=== PATIENT | male | born 1970 | race Caucasian/White ===

== ENCOUNTER 2018-04-26 18:00 | Inpatient (IN) | payer OTHER ==
[2018-04-26 19:34] VITALS: BMI 30.2
--- NOTE | 2018-04-26 22:13 | HP ---
CIWA Score Nausea/Vomitin-Mild Nausea/No Vomiting Muscle Tremors: 1-None Visible, but [place] Anxiety: 4-Mod. Anxious/Guarded Agitation: 4-Moderately Restless Paroxysmal Sweats: 3 (Increased facial moisture) Orientation: 0-Oriented Tacttile Disturbances: 0-None Auditory Disturbances: 0-None Visual Disturbances: 0-None Headache: 3-Moderate CIWA-Ar Total Score: 16 - Admission Criteria [facility] Guidelines: Admission for Medically Managed Detox: Requires at least one of the followin. CIWA greater than 12 2. Seizures within the past 24 hours 3. Delirium tremens within the past 24 hours 4. Hallucinations within the past 24 hours 5. Acute intervention needed for co occurring medical disorder 6. Acute intervention needed for co occurring psychiatric disorder 7. Severe withdrawal that cannot be handled at a lower level of care (continued vomiting, continued diarrhea, abnormal vital signs) requiring intravenous medication and/or fluids 8. Patient presents the following: CIWA greater than 12 Admission Criteria Met: Admission criteria met Admission ROS [facility] Chief Complaint: Here for klonopin withdrawal. Allergies/Adverse Reactions: Allergies Allergy/AdvReac Type Severity Reaction Status Date / Time No Known Allergies Allergy Verified 04/26/18 23:41 History of Present Illness: States has been taking more clonazepam than prescribed and is here for detox. State has been taking prescribed clonazepam for years. Letter from prescriber indicates agreeing to patient being discontinued off clonazepam. Prescribed Xanax use began at approx age 32, then was started on clonazepam in 2008. Has been on prescribed clonazepam since then. Letter from provider received and states that clonazepam will no longer be prescribed. Has experimented w/ opiates years ago. Denies alcohol or nicotine use. Patient states has hx episodes of orthostatic hypotension for last 3 months and has been taking Fludrocortisone. States blackouts r/t hypotension. - Discussed avoidance techniques. Denies other significant PMH. States hx TOBY, PTSD, ADHD. Needs a new mental health provider. Patient Name: Clement Vitale Date: 1970 Address: [address] [place] [address] Sex: Male Rx Written Rx Dispensed Drug Quantity Days Supply Prescriber Name 04/04/2018 04/04/2018 clonazepam 1 mg tablet 60 30 Thomas Hanson 04/04/2018 04/04/2018 methylphenidate er 36 mg tab 60 30 Valentin Thomas 12/18/2017 12/18/2017 methylphenidate er 54 mg tab 7 7 Gilles Shields MD 12/18/2017 12/18/2017 clonazepam 1 mg tablet 21 7 Gilles Shields MD 12/14/2017 12/14/2017 methylphenidate er 18 mg tab 7 7 Gilles Shields MD 12/12/2017 12/12/2017 clonazepam 1 mg tablet 21 7 Gilles Shields MD 12/12/2017 12/12/2017 methylphenidate er 54 mg tab 7 7 Gilles Shields MD 12/10/2017 12/10/2017 clonazepam 2 mg tablet 5 3 Gilles Shields MD 11/29/2017 12/02/2017 methylphenidate er 18 mg tab 14 14 Gilles Shields MD 11/29/2017 11/29/2017 clonazepam 1 mg tablet 42 14 Gilles Shields MD 11/29/2017 11/29/2017 methylphenidate er 54 mg tab 14 14 Gilles Shields MD 11/23/2017 11/26/2017 methylphenidate er 18 mg tab 7 7 Gilles Shields MD 11/23/2017 11/23/2017 clonazepam 1 mg tablet 21 7 Gilles Shields MD 11/23/2017 11/23/2017 methylphenidate er 54 mg tab 7 7 Gilles Shields MD 11/15/2017 11/19/2017 methylphenidate er 36 mg tab 14 7 Gilles Shields MD 11/15/2017 11/16/2017 clonazepam 1 mg tablet 21 7 Gilles Shields MD 11/09/2017 11/12/2017 methylphenidate er 36 mg tab 14 7 Gilles Shields MD 11/09/2017 11/09/2017 clonazepam 1 mg tablet 21 7 Gilles Shields MD 10/23/2017 11/06/2017 methylphenidate er 36 mg tab 14 7 Gilles Shields MD 10/31/2017 11/01/2017 clonazepam 1 mg tablet 21 7 Gilles Shields MD 10/22/2017 10/23/2017 clonazepam 1 mg tablet 21 7 Gilles Shields MD 09/24/2017 10/10/2017 methylphenidate er 36 mg tab 60 30 Gilles Shields MD 09/24/2017 09/26/2017 clonazepam 1 mg tablet 90 30 Gilles Shields MD 09/17/2017 09/19/2017 clonazepam 1 mg tablet 24 8 Leatha Ramirez MD 09/10/2017 09/11/2017 methylphenidate er 36 mg tab 60 30 Gilles Shields MD 08/20/2017 08/20/2017 clonazepam 1 mg tablet 90 30 Gilles Shields MD 08/13/2017 08/13/2017 methylphenidate er 36 mg tab 60 30 Gilles Shields MD 07/17/2017 07/20/2017 clonazepam 1 mg tablet 90 30 Gilles Shields MD 06/25/2017 07/12/2017 methylphenidate er 36 mg tab 60 30 Gilles Shields MD 06/22/2017 06/22/2017 clonazepam 1 mg tablet 90 30 Gilles Shields MD 05/29/2017 06/14/2017 methylphenidate er 36 mg tab 60 30 Gilles Shields MD 05/23/2017 05/23/2017 clonazepam 1 mg tablet 90 30 Gilles Shields MD 05/14/2017 05/15/2017 methylphenidate er 36 mg tab 60 30 Gilles Shields MD Patient Name: Clement Vitale Date: 1970 Address: [address] [place] [address] Sex: Male Rx Written Rx Dispensed Drug Quantity Days Supply Prescriber Name 04/02/2018 04/02/2018 clonazepam 1 mg tablet 20 10 Thomas Hanson 03/25/2018 03/25/2018 methylphenidate er 36 mg tab 12 12 hTomas Hanson 03/19/2018 03/19/2018 methylphenidate er 18 mg tab 36 18 Thomas Hanson 03/15/2018 03/15/2018 clonazepam 1 mg tablet 42 21 Thomas Hanson 03/15/2018 03/15/2018 methylphenidate er 18 mg tab 16 16 Thomas Hanson 03/15/2018 03/15/2018 methylphenidate er 36 mg tab 14 14 Thomas Hanson 03/11/2018 03/13/2018 clonazepam 0.5 mg tablet 5 5 Thomas Hanson 03/12/2018 03/12/2018 methylphenidate er 18 mg tab 5 5 Thomas Hanson 03/05/2018 03/05/2018 clonazepam 0.5 mg tablet 36 12 Thomas Hanson 03/04/2018 03/04/2018 methylphenidate er 36 mg tab 14 14 Thomas Hanson 02/28/2018 02/28/2018 clonazepam 0.5 mg tablet 30 15 Carlyle Foreman MD 02/27/2018 02/27/2018 clonazepam 0.5 mg tablet 6 3 Gilles Siddiqi MD Patient Name: Evan Vitale Date: 1970 Address: [address] [place] [address] Sex: Male Rx Written Rx Dispensed Drug Quantity Days Supply Prescriber Name 01/09/2018 01/14/2018 methylphenidate er 18 mg tab 12 12 Gilles Shields MD 01/09/2018 01/10/2018 methylphenidate er 54 mg tab 12 12 Gilles Shields MD 01/09/2018 01/10/2018 clonazepam 1 mg tablet 36 12 Gilles Shields MD 01/03/2018 01/03/2018 methylphenidate er 18 mg tab 8 8 Gilles Shields MD 12/31/2017 01/01/2018 methylphenidate er 54 mg tab 10 10 Gilles Shields MD 12/31/2017 01/01/2018 clonazepam 1 mg tablet 30 10 Gilles Shields MD 12/27/2017 12/27/2017 methylphenidate er 18 mg tab 7 7 Gilles Shields MD 12/24/2017 12/24/2017 methylphenidate er 54 mg tab 7 7 Gilles Shields MD 12/24/2017 12/24/2017 clonazepam 1 mg tablet 21 7 Gilles Shields MD 12/20/2017 12/20/2017 methylphenidate er 18 mg tab 7 7 Gilles Shields MD Exam Limitations: No Limitations - Ebola screening Have you traveled outside of the country in the last 21 days: No Have you had contact with anyone from an Ebola affected area: No Have you been sick,other than usual withdrawal symptoms: No Do you have a fever: No - Review of Systems Constitutional: Chills, Diaphoresis EENT: reports: No Symptoms Reported Respiratory: reports: No Symptoms reported Cardiac: reports: No Symptoms Reported GI: reports: Nausea (Slight) : reports: No Symptoms Reported Musculoskeletal: reports: No Symptoms Reported Integumentary: reports: No Symptoms Reported Neuro: reports: Headache Endocrine: reports: No Symptoms Reported Hematology: reports: No Symptoms Reported Psychiatric: reports: Judgement Intact, Orientated x3, Agitated, Anxious ( Denies thoughts of harming self or others) Patient History - PPD History Previous Implant?: Yes Documented Results: Negative w/o proof Implanted On Prior [facility] Admission?: No PPD to be Administered?: Yes - Smoking Cessation Smoking history: Never smoked Have you smoked in the past 12 months: No Hx Chewing Tobacco Use: No Initiated information on smoking cessation: No - Substance & Tx. History Hx Alcohol Use: No Hx Substance Use: Yes Substance Use Type: Prescribed (Clonazepam) - Substances Abused Benzodiazepine (Klonopin) Route: Oral Frequency: Daily Amount used: 3 mg Age of first use: 37 Date of Last Use: 04/26/18 Admission Physical Exam [facility] - Vital Signs Vital Signs: Vital Signs - 24 hr 04/26/18 19:32 Temperature 98.2 F Pulse Rate 106 H Respiratory 18 Rate Blood Pressure 101/71 - Physical General Appearance: Yes: Appropriately Dressed, Mild Distress, Tremorous (Mild tremors felt in hands), Sweating (Increased facial moisture), Anxious HEENTM: Yes: EOMI, Hearing grossly Normal, Normal Voice, EVERARDO (Pupils = 6 mm), Other (Saliva thick and whitish) Respiratory: Yes: Lungs Clear, Normal Breath Sounds, No Respiratory Distress Neck: Yes: No masses,lesions,Nodules, Supple Breast: Yes: Breast Exam Deferred Cardiology: Yes: Regular Rhythm, S1, S2, Tachycardia Abdominal: Yes: Normal Bowel Sounds, Non Tender, Soft Genitourinary: Yes: Within Normal Limits Back: Yes: Normal Inspection Musculoskeletal: Yes: full range of Motion, Gait Steady Extremities: Yes: Normal Capillary Refill, Normal Inspection, Normal Range of Motion, Tremors (mild tremors of hands) Neurological: Yes: sash finisher II-XII NML intact, Fully Oriented, Alert, Motor Strength 5/5 Integumentary: Yes: Normal Color, Dry (Decreased skin turgor), Warm Lymphatic: Yes: Within Normal Limits - Diagnostic (1) Sedative, hypnotic or anxiolytic dependence with withdrawal, uncomplicated Current Visit: Yes Status: Acute (2) Tachycardia Current Visit: Yes Status: Acute (3) Dehydration Current Visit: Yes Status: Acute (4) History of orthostatic hypotension Current Visit: Yes Status: Chronic Cleared for Admission [facility] - Detox or Rehab [facility] Level of Care: Medically Supervised [facility] Breath Alcohol Content Breath Alcohol Content: 0 Urine Drug Screen - Results Drug Screen Negative: Yes
[2018-04-26] MEDS ORDERED: MAGNESIUM CITRATE 300 ML BOTTLE PO PRN (23:15)
[2018-04-26] MEDS ORDERED: IBUPROFEN 400 MG TABLET (FP) PO PRN (23:15)
[2018-04-26] MEDS ORDERED: LOPERAMIDE HCL 2 MG CAPSULE PO PRN (23:15)
[2018-04-26] MEDS ORDERED: MAG HYDROX/AL HYDROX/SIMETH 30 ML UNIT-DOSE CUP PO PRN (23:15)
[2018-04-26] MEDS ORDERED: MENTHOL/PHENOL 1 EACH UD MM PRN (23:15)
[2018-04-26] MEDS ORDERED: ACETAMINOPHEN 325 MG TABLET (FP) PO PRN (23:15)
[2018-04-26] MEDS ORDERED: MAGNESIUM HYDROX 2400MG/30ML ORAL SUSPENSION 30 ML CUP PO PRN (23:15)
[2018-04-26] MEDS: LORazepam 1 MG TABLET PO SCH (23:41)
[2018-04-27] MEDS: PRENATAL VITAMINS W/ FOLIC ACID TABLET (FP) PO SCH (10:08)
[2018-04-27] MEDS: LORazepam 1 MG TABLET PO SCH ×2 (10:08→22:27)
[2018-04-27] MEDS: FLUDROCORTISONE ACETATE 0.1 MG TABLET (FP) PO SCH (10:09)
--- NOTE | 2018-04-27 10:36 | CONSULT ---
[facility] Psychiatric Consult - Data Date of interview: 04/27/18 Admission source: [facility] Identifying data: Patient is a 47 year old single male, without children, unemployed, and currently residing at his father's home. This is patient's first admission to detox at [facility]. Patient admitted to for benzodiazepine dependence. Substance Abuse History: Smoking Cessation. Smoking history: Never smoked. Have you smoked in the past 12 months: No. Hx Chewing Tobacco Use: No. Initiated information on smoking cessation: No. - Substance & Tx. History. Hx Alcohol Use: No. Hx Substance Use: Yes. Substance Use Type: Prescribed ( Clonazepam). - Substances Abused. Benzodiazepine (Klonopin). Route: Oral. Frequency: Daily. Amount used: 3 mg. Age of first use: 37. Date of Last Use : 04/26/18 Medical History: History of orthostatic hypotension Psychiatric History: Patient reports one psychiatric hospitalization in January of 2018 at [facility] after he became noncompliant with his medication regiman of paxil +Klonopin + Concerta + Paxil. Patient reports a has a history of ADHD, TOBY, and PTSD. Patient was receiving outpatient psychiatric care at [facility] for approximately 10 years until his treatment was recently discontined because patient was unable to meet criteria of program. Patient was at [facility] inpatient rehab in 2017 and was discharged on Paxil 30mg qhs + Concerta 36mg (one dose in the morning and one in the afternoon) Klonpoin 1mg BID + Seroquel 50mg TID PRN. Patient denies h /o suicide attempt. Physical/Sexual Abuse/Trauma History: He reports emotional trauma secondary to his ADHD . Mental Status Exam - Mental Status Exam Alert and Oriented to: Time, Place, Person Cognitive Function: Good Patient Appearance: Well Groomed Mood: Withdrawn, Euthymic Affect: Mood Congruent Patient Behavior: Fatigued, Appropriate, Cooperative Speech Pattern: Appropriate Voice Loudness: Moderately Soft/Quiet Thought Process: Intact, Goal Oriented Thought Disorder: Not Present Hallucinations: Denies Suicidal Ideation: Denies Homicidal Ideation: Denies Insight/Judgement: Poor Sleep: Poorly Appetite: Fair Muscle strength/Tone: Normal Gait/Station: Normal Psychiatric Findings - Problem List ([place] 1, 2,3) (1) Anxiety disorder Current Visit: Yes Status: Chronic (2) Sedative, hypnotic or anxiolytic dependence with withdrawal, uncomplicated Current Visit: Yes Status: Acute (3) ADHD (attention deficit hyperactivity disorder) Current Visit: No Status: Chronic - Initial Treatment Plan Initial Treatment Plan: Psychoeducation provided. Detox in progress. Will order Paxil 30mg HS + Seroquel 100mg HS. Benefits and side effects discussed. Verbal consent given.
[2018-04-27 11:14] LABS: ALBUMIN 3.8 g/dl (3.4-5.0); ALK PHOS 88 U/L (45-117); ANION GAP 10 MMOL/L (8-16); BILIRUBIN,TOTAL 0.7 mg/dL (0.2-1); BLOOD UREA NITROGEN 27 mg/dL (7-18); CALCIUM 8.6 mg/dL (8.5-10.1); CHLORIDE 102 mmol/L (98-107); CO2 28 mmol/L (21-32); CREATININE 1.5 mg/dL (0.55-1.3); GLUCOSE,RANDOM 93 mg/dL (74-106); POTASSIUM 3.6 mmol/L (3.5-5.1); SGOT/AST 15 U/L (15-37); SGPT/ALT 19 U/L (13-61); SODIUM 140 mmol/L (136-145); TOT PROT 7.1 g/dl (6.4-8.2)
[2018-04-27 11:24] LABS: HEMATOCRIT 45.5 % (35.4-49); HEMOGLOBIN 14.8 GM/dL (11.7-16.9); MCH 28.1 pg (25.7-33.7); MCHC 32.5 g/dl (32.0-35.9); MEAN CELL VOLUME 86.4 fl (80-96); PLATELET COUNT 235 K/MM3 (134-434); RBC 5.27 M/mm3 (4.00-5.60); RDW 14.2 % (11.9-15.9); WHITE BLOOD COUNT 8.2 K/mm3 (4.0-10.0)
[2018-04-27 11:52] LABS: URINE APPEARANCE CLEAR; URINE BILIRUBIN NEGATIVE (<2.0 mg/dL); URINE COLOR LTYELLOW; URINE GLUCOSE (UA) NEGATIVE (NEGATIVE); URINE KETONE NEGATIVE (NEGATIVE); URINE LEUK ESTERASE NEGATIVE (NEGATIVE); URINE NITRITE NEGATIVE (NEGATIVE); URINE PROTEIN NEGATIVE (NEGATIVE); URINE UROBILINOGEN NEGATIVE mg/dL (0.2-1.0)
--- NOTE | 2018-04-27 12:36 | PN ---
S CIWA - CIWA Score Nausea/Vomitin Muscle Tremors: 2 Anxiety: 2 Agitation: 2 Paroxysmal Sweats: 1-Minimal Palms Moist Orientation: 0-Oriented Tacttile Disturbances: 1-Very Mild Itch/Numbness Auditory Disturbances: 0-None Visual Disturbances: 1-Very Mild Sensitivity Headache: 2-Mild CIWA-Ar Total Score: 13 [facility] Progress Note (SOAP) Subjective: alert,irritable,anxious,interrupted sleep,tremor Objective: 04/27/18 12:34 Vital Signs Temperature 98.3 F 04/27/18 09:26 Pulse Rate 99 H 04/27/18 09:26 Respiratory Rate 18 04/27/18 09:26 Blood Pressure 102/62 04/27/18 09:26 O2 Sat by Pulse Oximetry (%) 04/27/18 12:34 Laboratory Last Values WBC 8.2 K/mm3 (4.0-10.0) 04/27/18 07:30 RBC 5.27 M/mm3 (4.00-5.60) 04/27/18 07:30 Hgb 14.8 GM/dL (11.7-16.9) 04/27/18 07:30 Hct 45.5 % (35.4-49) 04/27/18 07:30 MCV 86.4 fl (80-96) 04/27/18 07:30 MCH 28.1 pg (25.7-33.7) 04/27/18 07:30 MCHC 32.5 g/dl (32.0-35.9) 04/27/18 07:30 RDW 14.2 % (11.9-15.9) 04/27/18 07:30 Plt Count 235 K/MM3 (134-434) 04/27/18 07:30 MPV 9.0 fl (7.5-11.1) 04/27/18 07:30 Sodium 140 mmol/L (136-145) 04/27/18 07:30 Potassium 3.6 mmol/L (3.5-5.1) 04/27/18 07:30 Chloride 102 mmol/L (98-107) 04/27/18 07:30 Carbon Dioxide 28 mmol/L (21-32) 04/27/18 07:30 Anion Gap 10 MMOL/L (8-16) 04/27/18 07:30 BUN 27 mg/dL (7-18) H 04/27/18 07:30 Creatinine 1.5 mg/dL (0.55-1.3) H 04/27/18 07:30 Creat Clearance w eGFR 50.16 (>60) 04/27/18 07:30 Random Glucose 93 mg/dL (74-106) 04/27/18 07:30 Calcium 8.6 mg/dL (8.5-10.1) 04/27/18 07:30 Total Bilirubin 0.7 mg/dL (0.2-1) 04/27/18 07:30 AST 15 U/L (15-37) 04/27/18 07:30 ALT 19 U/L (13-61) 04/27/18 07:30 Alkaline Phosphatase 88 U/L (45-117) 04/27/18 07:30 Total Protein 7.1 g/dl (6.4-8.2) 04/27/18 07:30 Albumin 3.8 g/dl (3.4-5.0) 04/27/18 07:30 Urine Color Ltyellow 04/27/18 08:45 Urine Appearance Clear 04/27/18 08:45 Urine pH 6.0 (5.0-8.0) 04/27/18 08:45 Ur Specific [place] 1.009 (1.010-1.035) L 04/27/18 08:45 Urine Protein Negative (NEGATIVE) 04/27/18 08:45 Urine Glucose (UA) Negative (NEGATIVE) 04/27/18 08:45 Urine Ketones Negative (NEGATIVE) 04/27/18 08:45 Urine Blood Negative (NEGATIVE) 04/27/18 08:45 Urine Nitrite Negative (NEGATIVE) 04/27/18 08:45 Urine Bilirubin Negative (<2.0 mg/dL) 04/27/18 08:45 Urine Urobilinogen Negative mg/dL (0.2-1.0) 04/27/18 08:45 Ur Leukocyte Esterase Negative (NEGATIVE) 04/27/18 08:45 Assessment: 04/27/18 12:35 withdrawal symptom, Plan: continue detox,encourage oral fluid,repeat cmp in am
[2018-04-27] MEDS ORDERED: LORazepam 0.5 MG TABLET PO SCH (14:00)
[2018-04-27] MEDS ORDERED: LORazepam 1 MG TABLET PO SCH (14:04)
[2018-04-27] MEDS ORDERED: QUEtiapine FUMARATE 50 MG TABLET PO PRN (15:27)
--- NOTE | 2018-04-27 15:46 | EKG ---
Test Reason : Blood Pressure : / mmHG Vent. Rate : 093 BPM Atrial Rate : 093 BPM P-R Int : 146 ms QRS Dur : 086 ms QT Int : 356 ms P-R-T Axes : 036 007 011 degrees QTc Int : 442 ms NORMAL SINUS RHYTHM NORMAL ECG NO PREVIOUS ECGS AVAILABLE Confirmed by JOHNNY ROSA MD ([id number]) on 04/27/2018 3:45:55 PM Referred By: Confirmed By:JOHNNY ROSA MD
[2018-04-27] MEDS: THIAMINE HCL 100 MG TABLET (FP) PO SCH (22:08)
[2018-04-27] MEDS: QUEtiapine FUMARATE 50 MG TABLET PO SCH (22:09)
[2018-04-27] MEDS: PARoxetine HCL 10 MG TABLET (FP) PO SCH (22:09)
[2018-04-28] MEDS: LORazepam 1 MG TABLET PO SCH ×3 (05:04→22:33)
[2018-04-28] MEDS: FLUDROCORTISONE ACETATE 0.1 MG TABLET (FP) PO SCH (10:23)
[2018-04-28] MEDS: hydrOXYzine PAMOATE 25 MG CAPSULE (FP) PO PRN ×2 (10:23→14:10)
[2018-04-28] MEDS: PRENATAL VITAMINS W/ FOLIC ACID TABLET (FP) PO SCH (10:24)
[2018-04-28 10:28] LABS: ALBUMIN 3.9 g/dl (3.4-5.0); ALK PHOS 86 U/L (45-117); ANION GAP 5 MMOL/L (8-16); BILIRUBIN,TOTAL 0.5 mg/dL (0.2-1); BLOOD UREA NITROGEN 20 mg/dL (7-18); CALCIUM 8.9 mg/dL (8.5-10.1); CHLORIDE 106 mmol/L (98-107); CO2 30 mmol/L (21-32); CREATININE 1.2 mg/dL (0.55-1.3); GLUCOSE,RANDOM 93 mg/dL (74-106); POTASSIUM 4.3 mmol/L (3.5-5.1); SGOT/AST 16 U/L (15-37); SGPT/ALT 17 U/L (13-61); SODIUM 141 mmol/L (136-145); TOT PROT 6.9 g/dl (6.4-8.2)
--- NOTE | 2018-04-28 16:09 | PN ---
[facility] CIWA - CIWA Score Nausea/Vomitin-Mild Nausea/No Vomiting Muscle Tremors: 3 Anxiety: 2 Agitation: 2 Paroxysmal Sweats: 3 Orientation: 0-Oriented Tacttile Disturbances: 0-None Auditory Disturbances: 0-None Visual Disturbances: 0-None Headache: 0-None Present CIWA-Ar Total Score: 11 [facility] Progress Note (SOAP) Subjective: Sweating, tremor, stomach cramps, interrupted sleep Objective: 04/28/18 16:07 Last Vital Signs Temp Pulse Resp BP Pulse Ox 9.0 F L 92 H 16 108/71 04/28/18 13:47 04/28/18 13:47 04/28/18 13:47 04/28/18 13:47 Laboratory Tests 04/27/18 04/27/18 04/27/18 07:30 07:30 07:30 WBC 8.2 RBC 5.27 Hgb 14.8 Hct 45.5 MCV 86.4 MCH 28.1 MCHC 32.5 RDW 14.2 Plt Count 235 MPV 9.0 Sodium 140 Potassium 3.6 Chloride 102 Carbon Dioxide 28 Anion Gap 10 BUN 27 H Creatinine 1.5 H Creat Clearance w eGFR 50.16 Random Glucose 93 Calcium 8.6 Total Bilirubin 0.7 AST 15 ALT 19 Alkaline Phosphatase 88 Total Protein 7.1 Albumin 3.8 Urine Color Urine Appearance Urine pH Ur Specific [place] Urine Protein Urine Glucose (UA) Urine Ketones Urine Blood Urine Nitrite Urine Bilirubin Urine Urobilinogen Ur Leukocyte Esterase RPR Titer Nonreactive 04/27/18 04/28/18 08:45 07:30 WBC RBC Hgb Hct MCV MCH MCHC RDW Plt Count MPV Sodium 141 Potassium 4.3 Chloride 106 Carbon Dioxide 30 Anion Gap 5 L BUN 20 H Creatinine 1.2 Creat Clearance w eGFR > 60 Random Glucose 93 Calcium 8.9 Total Bilirubin 0.5 AST 16 ALT 17 Alkaline Phosphatase 86 Total Protein 6.9 Albumin 3.9 Urine Color Ltyellow Urine Appearance Clear Urine pH 6.0 Ur Specific [place] 1.009 L Urine Protein Negative Urine Glucose (UA) Negative Urine Ketones Negative Urine Blood Negative Urine Nitrite Negative Urine Bilirubin Negative Urine Urobilinogen Negative Ur Leukocyte Esterase Negative RPR Titer Labs reviewed: bun 20 (was 27) Assessment: 04/28/18 16:08 Withdrawal symptoms Noted with azotemia Plan: Continue detox Azotemia: improved, encouraged PO water intake
[2018-04-28] MEDS: THIAMINE HCL 100 MG TABLET (FP) PO SCH (22:32)
[2018-04-28] MEDS: PARoxetine HCL 10 MG TABLET (FP) PO SCH (22:33)
[2018-04-28] MEDS: QUEtiapine FUMARATE 50 MG TABLET PO SCH (22:34)
[2018-04-29] MEDS: LORazepam 1 MG TABLET PO SCH ×2 (10:06→22:31)
[2018-04-29] MEDS: PRENATAL VITAMINS W/ FOLIC ACID TABLET (FP) PO SCH (10:07)
[2018-04-29] MEDS: FLUDROCORTISONE ACETATE 0.1 MG TABLET (FP) PO SCH (10:07)
[2018-04-29] MEDS: hydrOXYzine PAMOATE 25 MG CAPSULE (FP) PO PRN ×2 (13:51→18:19)
--- NOTE | 2018-04-29 17:33 | PN ---
[facility] Progress Note (SOAP) Subjective: abd pain sweats shakes Objective: 04/29/18 17:31 a A & O x 3 ambulating freely on unit No acute distress noted Vital Signs Temperature 97.1 F L 04/29/18 13:03 Pulse Rate 103 H 04/29/18 13:03 Respiratory Rate 20 04/29/18 13:03 Blood Pressure 105/68 04/29/18 13:03 O2 Sat by Pulse Oximetry (%) Assessment: 04/29/18 17:33 withdrawal sx Plan: continue detox
[2018-04-29] MEDS: PARoxetine HCL 10 MG TABLET (FP) PO SCH (22:32)
[2018-04-29] MEDS: THIAMINE HCL 100 MG TABLET (FP) PO SCH (22:32)
[2018-04-29] MEDS: QUEtiapine FUMARATE 50 MG TABLET PO SCH (22:32)
[2018-04-29] MEDS: MELATONIN 5 MG TABLETS PO PRN (22:33)
[2018-04-30] MEDS: PRENATAL VITAMINS W/ FOLIC ACID TABLET (FP) PO SCH (10:05)
[2018-04-30] MEDS: LORazepam 1 MG TABLET PO SCH ×2 (10:05→22:25)
[2018-04-30] MEDS: FLUDROCORTISONE ACETATE 0.1 MG TABLET (FP) PO SCH (10:05)
--- NOTE | 2018-04-30 14:51 | PN ---
[facility] Progress Note (SOAP) Subjective: Chills, sweating, tremor, nausea, stomach ache, interrupted sleep. Patient stated he doesn't want to be discharged tomorrow because of increased withdrawal symptoms. Objective: 04/30/18 14:49 Last Vital Signs Temp Pulse Resp BP Pulse Ox 97.0 F L 107 H 20 129/92 04/30/18 13:17 04/30/18 13:17 04/30/18 13:17 04/30/18 13:17 Laboratory Tests 04/27/18 04/27/18 04/27/18 07:30 07:30 07:30 WBC 8.2 RBC 5.27 Hgb 14.8 Hct 45.5 MCV 86.4 MCH 28.1 MCHC 32.5 RDW 14.2 Plt Count 235 MPV 9.0 Sodium 140 Potassium 3.6 Chloride 102 Carbon Dioxide 28 Anion Gap 10 BUN 27 H Creatinine 1.5 H Creat Clearance w eGFR 50.16 Random Glucose 93 Calcium 8.6 Total Bilirubin 0.7 AST 15 ALT 19 Alkaline Phosphatase 88 Total Protein 7.1 Albumin 3.8 Urine Color Urine Appearance Urine pH Ur Specific [place] Urine Protein Urine Glucose (UA) Urine Ketones Urine Blood Urine Nitrite Urine Bilirubin Urine Urobilinogen Ur Leukocyte Esterase RPR Titer Nonreactive 04/27/18 04/28/18 08:45 07:30 WBC RBC Hgb Hct MCV MCH MCHC RDW Plt Count MPV Sodium 141 Potassium 4.3 Chloride 106 Carbon Dioxide 30 Anion Gap 5 L BUN 20 H Creatinine 1.2 Creat Clearance w eGFR > 60 Random Glucose 93 Calcium 8.9 Total Bilirubin 0.5 AST 16 ALT 17 Alkaline Phosphatase 86 Total Protein 6.9 Albumin 3.9 Urine Color Ltyellow Urine Appearance Clear Urine pH 6.0 Ur Specific [place] 1.009 L Urine Protein Negative Urine Glucose (UA) Negative Urine Ketones Negative Urine Blood Negative Urine Nitrite Negative Urine Bilirubin Negative Urine Urobilinogen Negative Ur Leukocyte Esterase Negative RPR Titer Labs reviewed Assessment: 04/30/18 14:50 Withdrawal symptoms Plan: Continue detox Encouraged PO water intake
[2018-04-30] MEDS: hydrOXYzine PAMOATE 25 MG CAPSULE (FP) PO PRN (15:20)
[2018-04-30] MEDS: QUEtiapine FUMARATE 50 MG TABLET PO SCH (22:24)
[2018-04-30] MEDS: PARoxetine HCL 10 MG TABLET (FP) PO SCH (22:24)
[2018-04-30] MEDS: THIAMINE HCL 100 MG TABLET (FP) PO SCH (22:25)
[2018-04-30] MEDS: MELATONIN 5 MG TABLETS PO PRN (22:25)
[2018-05-01] MEDS ORDERED: LORazepam 1 MG TABLET PO SCH (10:00)
[2018-05-01 10:13] VITALS: BP 113/84; PULSE 97; TEMP 96.8
[2018-05-01] MEDS: PRENATAL VITAMINS W/ FOLIC ACID TABLET (FP) PO SCH (10:15)
[2018-05-01] MEDS: hydrOXYzine PAMOATE 25 MG CAPSULE (FP) PO PRN (10:16)
[2018-05-01] MEDS: FLUDROCORTISONE ACETATE 0.1 MG TABLET (FP) PO SCH (10:16)
--- NOTE | 2018-05-01 14:12 | PN ---
[facility] Progress Note (SOAP) Subjective: Sweating, Fatigue. Objective: PATIENT A & O X 3, OBSERVED AMBULATING ON UNIT. NO ACUTE DISTRESS. 05/01/18 14:09 Vital Signs Temperature 96.8 F L 05/01/18 10:12 Pulse Rate 97 H 05/01/18 10:12 Respiratory Rate 18 05/01/18 10:12 Blood Pressure 113/84 05/01/18 10:12 O2 Sat by Pulse Oximetry (%) Laboratory Tests 04/27/18 04/27/18 04/27/18 07:30 07:30 07:30 WBC 8.2 RBC 5.27 Hgb 14.8 Hct 45.5 MCV 86.4 MCH 28.1 MCHC 32.5 RDW 14.2 Plt Count 235 MPV 9.0 Sodium 140 Potassium 3.6 Chloride 102 Carbon Dioxide 28 Anion Gap 10 BUN 27 H Creatinine 1.5 H Creat Clearance w eGFR 50.16 Random Glucose 93 Calcium 8.6 Total Bilirubin 0.7 AST 15 ALT 19 Alkaline Phosphatase 88 Total Protein 7.1 Albumin 3.8 Urine Color Urine Appearance Urine pH Ur Specific [place] Urine Protein Urine Glucose (UA) Urine Ketones Urine Blood Urine Nitrite Urine Bilirubin Urine Urobilinogen Ur Leukocyte Esterase RPR Titer Nonreactive 04/27/18 04/28/18 08:45 07:30 WBC RBC Hgb Hct MCV MCH MCHC RDW Plt Count MPV Sodium 141 Potassium 4.3 Chloride 106 Carbon Dioxide 30 Anion Gap 5 L BUN 20 H Creatinine 1.2 Creat Clearance w eGFR > 60 Random Glucose 93 Calcium 8.9 Total Bilirubin 0.5 AST 16 ALT 17 Alkaline Phosphatase 86 Total Protein 6.9 Albumin 3.9 Urine Color Ltyellow Urine Appearance Clear Urine pH 6.0 Ur Specific [place] 1.009 L Urine Protein Negative Urine Glucose (UA) Negative Urine Ketones Negative Urine Blood Negative Urine Nitrite Negative Urine Bilirubin Negative Urine Urobilinogen Negative Ur Leukocyte Esterase Negative RPR Titer LABS NOTED. Assessment: 05/01/18 14:10 COMPLETION OF DETOX REGIMEN. Plan: PATIENT SCHEDULED TO BE DISCHARGED FROM DETOX UNIT TODAY. PATIENT GOING ON TO [facility] ([place], [place]) FOR AFTERCARE.
--- NOTE | 2018-05-01 14:21 | DS ---
[facility] Detox Discharge Summary Admission Date: 04/26/18 Discharge Date: 05/01/18 - History Present History: Sedative Dependence Additional Comments: PATIENT GOING TO [facility] (Aaliyah DUARTE) FOR AFTERCARE. PATIENT WAS DISCHARGED FROM DETOX UNIT TO BE TAKEN OVER TO REHAB UNIT IN STABLE MEDICAL CONDITION. Pertinent Past History: Tachycardia, Dehydration, History of Orthostatic Hypotension. - Physical Exam Results Vital Signs: Vital Signs Temperature 96.8 F L 05/01/18 10:12 Pulse Rate 97 H 05/01/18 10:12 Respiratory Rate 18 05/01/18 10:12 Blood Pressure 113/84 05/01/18 10:12 O2 Sat by Pulse Oximetry (%) Pertinent Admission Physical Exam Findings: WITHDRAWAL SYMPTOMS. Laboratory Tests 04/27/18 04/27/18 04/27/18 07:30 07:30 07:30 WBC 8.2 RBC 5.27 Hgb 14.8 Hct 45.5 MCV 86.4 MCH 28.1 MCHC 32.5 RDW 14.2 Plt Count 235 MPV 9.0 Sodium 140 Potassium 3.6 Chloride 102 Carbon Dioxide 28 Anion Gap 10 BUN 27 H Creatinine 1.5 H Creat Clearance w eGFR 50.16 Random Glucose 93 Calcium 8.6 Total Bilirubin 0.7 AST 15 ALT 19 Alkaline Phosphatase 88 Total Protein 7.1 Albumin 3.8 Urine Color Urine Appearance Urine pH Ur Specific [place] Urine Protein Urine Glucose (UA) Urine Ketones Urine Blood Urine Nitrite Urine Bilirubin Urine Urobilinogen Ur Leukocyte Esterase RPR Titer Nonreactive 04/27/18 04/28/18 08:45 07:30 WBC RBC Hgb Hct MCV MCH MCHC RDW Plt Count MPV Sodium 141 Potassium 4.3 Chloride 106 Carbon Dioxide 30 Anion Gap 5 L BUN 20 H Creatinine 1.2 Creat Clearance w eGFR > 60 Random Glucose 93 Calcium 8.9 Total Bilirubin 0.5 AST 16 ALT 17 Alkaline Phosphatase 86 Total Protein 6.9 Albumin 3.9 Urine Color Ltyellow Urine Appearance Clear Urine pH 6.0 Ur Specific [place] 1.009 L Urine Protein Negative Urine Glucose (UA) Negative Urine Ketones Negative Urine Blood Negative Urine Nitrite Negative Urine Bilirubin Negative Urine Urobilinogen Negative Ur Leukocyte Esterase Negative RPR Titer LABS NOTED. - Treatment Hospital Course: Detox Protocol Followed, Detoxed Safely, Responded well, Discharged Condition Good, Rehab Referral Accepted Patient has Accepted a Rehab Referral to: [facility] (FELICIA N.Seda.) . - Medication Discharge Medications: Ambulatory Orders Fludrocortisone Acetate [Florinef -] 0.1 mg PO DAILY 04/26/18 Methylphenidate HCl [Concerta] 72 mg PO DAILY 04/26/18 Methylphenidate HCl [Methylphenidate ER] 1 tab PO BID 04/26/18 Paroxetine HCl [Paxil -] 30 mg PO HS 04/26/18 Quetiapine Fumarate [Seroquel -] 50 mg PO TID PRN 04/26/18 clonazePAM [KlonoPIN -] 1 mg PO BID 04/26/18 - Diagnosis (1) Dehydration Current Visit: Yes Status: Acute (2) Sedative, hypnotic or anxiolytic dependence with withdrawal, uncomplicated Current Visit: Yes Status: Acute (3) History of orthostatic hypotension Current Visit: Yes Status: Chronic (4) Tachycardia Current Visit: Yes Status: Chronic - AMA Did Patient Leave Against Medical Advice: No
== END 2018-05-01 14:21 | disposition other institution (70) | DRG 776 ==
LOC: YASAS 18:00 → Y3N 22:45
PROC: HZ2ZZZZ Detoxification Services for Substance Abuse Treatment (ICD-10-PCS; principal; 2018-04-27)
DX: F13.230 Sedative, hypnotic or anxiolytic dependence with withdrawal, uncomplicated (principal); F17.210 Nicotine dependence, cigarettes, uncomplicated; F41.9 Anxiety disorder, unspecified; F90.9 Attention-deficit hyperactivity disorder, unspecified type; E86.0 Dehydration; R00.0 Tachycardia, unspecified; J45.909 Unspecified asthma, uncomplicated; R79.89 Other specified abnormal findings of blood chemistry
CPT/HCPCS: 36415; 80053; 81003; 85027; 86593; 93005; 93010

== ENCOUNTER 2018-05-01 14:27 | Inpatient (IN) | payer OTHER ==
--- NOTE | 2018-05-01 14:13 | HP ---
[facility] Re[facility] Assess/Revision - Admission History Admitted to Rehab from: [facility] Date of Admission to Rehab: 05/01/2018 - Vital signs Vital Signs: NOTED; STABLE. - Findings Detox History & Physical reviewed: Yes Concur with findings: Yes Comments/Additional Findings: PATIENT'S MEDICAL / MEDICATION HISTORY REVIEWED PRIOR TO DISCHARGE FROM DETOX UNIT. PATIENT WAS DISCHARGED FROM DETOX UNIT TO BE TAKEN TO REHAB UNIT IN STABLE MEDICAL CONDITION. Inpatient Rehab Admission - Initial Determination Are CD services needed?: Yes Free of communicable disease: Yes Not in need of hospitalization: Yes - Rehab Admission Criteria Comorbidities: Yes Patient is meeting Inpatient Rehab admission criteria:: Yes
[~2018-05-01 14:27] MED LIST: ACETAMINOPHEN 325 MG TABLET (FP) PO PRN; IBUPROFEN 400 MG TABLET (FP) PO PRN; LOPERAMIDE HCL 2 MG CAPSULE PO PRN; MAG HYDROX/AL HYDROX/SIMETH 30 ML UNIT-DOSE CUP PO PRN; MAGNESIUM CITRATE 300 ML BOTTLE PO PRN; MAGNESIUM HYDROX 2400MG/30ML ORAL SUSPENSION 30 ML CUP PO PRN; MENTHOL/PHENOL 1 EACH UD MM PRN; P-EPHED 60MG/TRIPROLIDI 2.5MG TABLET PO PRN; guaiFENesin/D-METHORPHAN HB 10 ML UNIT-DOSE CUPS PO PRN
--- NOTE | 2018-05-01 15:08 | PN ---
[facility] Progress Note Note: Called by nursing staff to order medication for newly admitted patient from 3. Medication reconciliation done. Paxil 30 mg po HS and Seroquel 50 mg po TID prn ordered for patient
[2018-05-01] MEDS: PARoxetine HCL 10 MG TABLET (FP) PO SCH (21:52)
[2018-05-01] MEDS: THIAMINE HCL 100 MG TABLET (FP) PO SCH (21:52)
[2018-05-01] MEDS: QUEtiapine FUMARATE 50 MG TABLET PO PRN (21:55)
[2018-05-01] MEDS: MELATONIN 5 MG TABLETS PO PRN (21:55)
--- NOTE | 2018-05-02 10:02 | PN ---
[facility] Progress Note (SOAP) Subjective: C/o chills, abdominal cramping and anxiety. States "I'm going to work this out" . Objective: A&O x 3. Pale. Increased facial moisture despite cool temperature of room. Pupils dilated at 6 mm. Mild tremors of hands noted. Lungs CTA. Abd soft, non-tender. BS +. Vital Signs - 24 hr 05/02/18 05/02/18 05/02/18 01:14 03:30 06:51 Temperature 97.8 F Pulse Rate 92 H Respiratory 18 18 16 Rate Blood Pressure 108/72 Assessment: Early anxiolytic remission w/ protracted withdrawal symptoms. Plan: Add Vistaril 25 mg PO Q6H prn Encourage increased water intake. Continue rehab.
[2018-05-02] MEDS: FLUDROCORTISONE ACETATE 0.1 MG TABLET (FP) PO SCH (10:40)
[2018-05-02] MEDS: PRENATAL VITAMINS W/ FOLIC ACID TABLET (FP) PO SCH (10:40)
[2018-05-02] MEDS: QUEtiapine FUMARATE 50 MG TABLET PO PRN ×3 (10:41→21:50)
--- NOTE | 2018-05-02 10:46 | HP ---
Psychiatrist Admission - Data Date of interview: 05/02/18 Admission source: [facility] Identifying data: Patient is a 47 year old single male, without children, unemployed, and currently residing at his father's home. This is patient's first admission to rehab at [facility]. Patient admitted to for benzodiazepine dependence. Medical History: History of orthostatic hypotension Psychiatric History: Patient's first psychiatric contact was approximately 12 years ago after he was started on Paxil secondary to experiencing a panic attack. In 2008 he saw a psychiatrist at the [facility] outpatient clinic and was started on Klonopin 1mg TID for anxiety. After 9 years of being treated at [facility], his psychiatric services was discontinued in January of 2018 after he was abusing his klonopin. Subsequently, he was admitted to [facility]'s inpatient unit for managmement of his benzodiazepine abuse. Patient reports a diagnosis of ADHD, TOBY, and PTSD. After discharge from [facility] he was transferred to [facility] inpatient rehab in 2017 and was discharged on Paxil 30mg qhs + Concerta 36mg (one dose in the morning and one in the afternoon) Klonpoin 1mg BID + Seroquel 50mg TID PRN. Patient denies h/o suicide attempt. At present, he reports stable mood and mild anxiety. Physical/Sexual Abuse/Trauma History: He reports emotional trauma secondary to his ADHD . Vital Signs: Vital Signs - 24 hr 05/02/18 05/02/18 05/02/18 01:14 03:30 06:51 Temperature 97.8 F Pulse Rate 92 H Respiratory 18 18 16 Rate Blood Pressure 108/72 Allergies/Adverse Reactions: Allergies Allergy/AdvReac Type Severity Reaction Status Date / Time No Known Allergies Allergy Verified 05/01/18 14:46 Concur with the findings of this exam: Yes - Substance Abuse/Tx History Hx Alcohol Use: Yes (5 years ago. ) Hx Substance Use: Yes (Klonopin 3mg daily ) Substance Use Type: Tranquilizers Hx Substance Use Treatment: Yes ([facility] in 2018 ) Mental Status Exam - Mental Status Exam Alert and Oriented to: Time, Place, Person Cognitive Function: Good Patient Appearance: Well Groomed Mood: Anxious, Hopeful Affect: Appropriate Patient Behavior: Appropriate, Cooperative Speech Pattern: Clear, Appropriate Voice Loudness: Normal Thought Process: Intact, Goal Oriented Thought Disorder: Not Present Hallucinations: Denies Suicidal Ideation: Denies Homicidal Ideation: Denies Insight/Judgement: Poor Sleep: Fair Appetite: Good Muscle strength/Tone: Normal Gait/Station: Normal Psychiatric Findings - Problem List ([place] 1, 2,3) (1) Sedative hypnotic or anxiolytic dependence Current Visit: Yes Status: Chronic (2) ADHD (attention deficit hyperactivity disorder) Current Visit: No Status: Chronic (3) Anxiety disorder Current Visit: Yes Status: Chronic - Initial Treatment Plan Initial Treatment Plan: Psychoeducation provided. Rehab in progress. Will continue current medications ordered by Dr. Bradshaw of Paxil 30mg HS + Seroquel 50mg TID. Benefits and side effects discussed. Verbal consent given.
[2018-05-02] MEDS: THIAMINE HCL 100 MG TABLET (FP) PO SCH (21:48)
[2018-05-02] MEDS: PARoxetine HCL 10 MG TABLET (FP) PO SCH (21:48)
[2018-05-02] MEDS: MELATONIN 5 MG TABLETS PO PRN (21:49)
[2018-05-02] MEDS: hydrOXYzine PAMOATE 25 MG CAPSULE (FP) PO PRN (21:50)
[2018-05-03] MEDS: hydrOXYzine PAMOATE 25 MG CAPSULE (FP) PO PRN ×3 (10:18→21:50)
[2018-05-03] MEDS: QUEtiapine FUMARATE 50 MG TABLET PO PRN ×3 (10:18→21:50)
[2018-05-03] MEDS: PRENATAL VITAMINS W/ FOLIC ACID TABLET (FP) PO SCH (10:19)
[2018-05-03] MEDS: FLUDROCORTISONE ACETATE 0.1 MG TABLET (FP) PO SCH (10:19)
[2018-05-03] MEDS: THIAMINE HCL 100 MG TABLET (FP) PO SCH (21:48)
[2018-05-03] MEDS: MELATONIN 5 MG TABLETS PO PRN (21:49)
[2018-05-03] MEDS: PARoxetine HCL 10 MG TABLET (FP) PO SCH (21:51)
[2018-05-04] MEDS: PRENATAL VITAMINS W/ FOLIC ACID TABLET (FP) PO SCH (10:04)
[2018-05-04] MEDS: QUEtiapine FUMARATE 50 MG TABLET PO PRN ×3 (10:04→21:56)
[2018-05-04] MEDS: hydrOXYzine PAMOATE 25 MG CAPSULE (FP) PO PRN (10:04)
[2018-05-04] MEDS: FLUDROCORTISONE ACETATE 0.1 MG TABLET (FP) PO SCH (10:04)
[2018-05-04] MEDS: PARoxetine HCL 10 MG TABLET (FP) PO SCH (21:54)
[2018-05-04] MEDS: THIAMINE HCL 100 MG TABLET (FP) PO SCH (21:55)
[2018-05-04] MEDS: MELATONIN 5 MG TABLETS PO PRN (21:55)
--- NOTE | 2018-05-05 08:38 | PN ---
[facility] Progress Note Note: Patient requests to take Paxil at 10 o'clock in the morning instead of night
[2018-05-05] MEDS: PRENATAL VITAMINS W/ FOLIC ACID TABLET (FP) PO SCH (10:08)
[2018-05-05] MEDS: QUEtiapine FUMARATE 50 MG TABLET PO PRN ×2 (10:08→21:47)
[2018-05-05] MEDS: FLUDROCORTISONE ACETATE 0.1 MG TABLET (FP) PO SCH (10:08)
[2018-05-05] MEDS: PARoxetine HCL 10 MG TABLET (FP) PO SCH (12:06)
[2018-05-05] MEDS: hydrOXYzine PAMOATE 25 MG CAPSULE (FP) PO PRN (16:31)
[2018-05-05] MEDS: MELATONIN 5 MG TABLETS PO PRN (21:47)
[2018-05-05] MEDS: THIAMINE HCL 100 MG TABLET (FP) PO SCH (21:47)
[2018-05-06] MEDS: PARoxetine HCL 10 MG TABLET (FP) PO SCH (10:25)
[2018-05-06] MEDS: FLUDROCORTISONE ACETATE 0.1 MG TABLET (FP) PO SCH (10:25)
[2018-05-06] MEDS: PRENATAL VITAMINS W/ FOLIC ACID TABLET (FP) PO SCH (10:25)
[2018-05-06] MEDS: QUEtiapine FUMARATE 50 MG TABLET PO PRN ×2 (10:26→21:53)
--- NOTE | 2018-05-06 10:41 | PN ---
[facility] Progress Note Note: Patient with history of Sedative, Hypnotic or anxiolytic dependence reports feeling very anxious despite being on Paxil 30 mg po daily, Seroquel 50 mg po TID and Hydroxyzine 25 mg po Q 6 hrs prn. Will increase Hydroxyzine dosage to 50 mg po Q 4hrs prn to alleviate anxiety symptoms
[2018-05-06] MEDS: hydrOXYzine PAMOATE 50 MG CAPSULE (FP) PO PRN ×2 (17:37→21:53)
[2018-05-06] MEDS: THIAMINE HCL 100 MG TABLET (FP) PO SCH (21:53)
[2018-05-06] MEDS: MELATONIN 5 MG TABLETS PO PRN (21:53)
[2018-05-07] MEDS: hydrOXYzine PAMOATE 50 MG CAPSULE (FP) PO PRN ×3 (06:35→21:57)
[2018-05-07] MEDS: PARoxetine HCL 10 MG TABLET (FP) PO SCH (10:15)
[2018-05-07] MEDS: PRENATAL VITAMINS W/ FOLIC ACID TABLET (FP) PO SCH (10:16)
[2018-05-07] MEDS: FLUDROCORTISONE ACETATE 0.1 MG TABLET (FP) PO SCH (10:16)
[2018-05-07] MEDS: QUEtiapine FUMARATE 50 MG TABLET PO PRN ×2 (10:16→21:57)
[2018-05-07] MEDS: THIAMINE HCL 100 MG TABLET (FP) PO SCH (21:55)
[2018-05-07] MEDS: MELATONIN 5 MG TABLETS PO PRN (21:57)
[2018-05-08 07:09] VITALS: BP 122/91; PULSE 78; TEMP 97.8
--- NOTE | 2018-05-08 09:45 | PN ---
Psychiatric Progress Note Vital Signs: Vital Signs Period Temp Pulse Resp BP Sys/[place] Pulse Ox Last 24 Hr 97.8 F 78 18-18 122/91 Date of Session: 05/08/18 Chief Complaint:: Discharge Note HPI: Patient addressing Sedative, Hypnotic or Anxiolytic Dependence comorbid with ADHD and Anxiety Current Medications: Active Medications Generic Name Dose Route Start Last Admin Trade Name Freq PRN Reason Stop Dose Admin Acetaminophen 650 mg 05/01/18 14:15 Tylenol - PO Q4H PRN FEVER Al Hydroxide/Mg Hydroxide 30 ml 05/01/18 14:15 Mylanta Oral Suspension - PO Q6H PRN DYSPEPSIA Eucalyptus/Menthol/Phenol/Sorbitol 1 each 05/01/18 14:15 Cepastat Lozenge - MM Q4H PRN SORE THROAT Fludrocortisone Acetate 0.1 mg 05/02/18 10:00 05/07/18 10:16 Florinef - PO 0.1 mg DAILY LORAINE Administration Hydroxyzine Pamoate 50 mg 05/06/18 10:40 05/07/18 21:57 Vistaril - PO 50 mg Q4H PRN Administration ANXIETY Ibuprofen 400 mg 05/01/18 14:15 05/03/18 21:48 Motrin - PO 400 mg Q6H PRN Administration Pain Level 4-6 Loperamide HCl 4 mg 05/01/18 14:15 Imodium - PO Q6H PRN DIARRHEA Magnesium Citrate 300 ml 05/01/18 14:15 Citroma - PO Q48H PRN CONSTIPATION Magnesium Hydroxide 30 ml 05/01/18 14:15 Milk Of Magnesia - PO DAILY PRN CONSTIPATION Melatonin 5 mg 05/01/18 22:00 05/07/18 21:57 Melatonin PO 5 mg HS PRN Administration INSOMNIA Paroxetine HCl 30 mg 05/05/18 11:15 05/07/18 10:15 Paxil - PO 30 mg DAILY LORAINE Administration Multivit/Folic Acid/Iron 1 tab 05/02/18 10:00 05/07/18 10:16 Vitamins (Sjr) - PO 1 tab DAILY LORAINE Administration Quetiapine Fumarate 50 mg 05/01/18 15:03 05/07/18 21:57 Seroquel - PO 50 mg TID PRN Administration ANXIETY Thiamine HCl 100 mg 05/01/18 22:00 05/07/18 21:55 Vitamin B1 - PO 100 mg HS LORAINE Administration Current Side Effect: No Lab tests ordered: Yes Lab tests reviewed: Yes Provider note:: Patient has completed this program today. He has partially met his treatment goals and will continue to address his issues in outpatient treatment at [facility] in [place]. 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 He responded well to Paxil 30 mg po daily and Seroquel 50 mg po TID. Scripts for 30 days supply of these medications are electronically transmitted to [facility] at [address] [place] [address]. He is stabke for discharge today Total face to face time:: 35 Mental Status Exam - Mental Status Exam Alert and Oriented to: Time, Place, Person Cognitive Function: Fair Patient Appearance: Well Groomed Mood: Hopeful, Euthymic Affect: Appropriate Patient Behavior: Cooperative Speech Pattern: Clear Voice Loudness: Normal Thought Process: Intact, Goal Oriented Thought Disorder: Not Present Hallucinations: Denies Suicidal Ideation: Denies Homicidal Ideation: Denies Insight/Judgement: Fair Sleep: Fair Appetite: Good Muscle strength/Tone: Normal Gait/Station: Normal Psychiatric Treatment Plan - Problem List (1) Sedative hypnotic or anxiolytic dependence Current Visit: Yes (2) ADHD (attention deficit hyperactivity disorder) Current Visit: No (3) Anxiety disorder Current Visit: Yes Initial treatment plan: Patient is discharged today and referred to [facility] in [place] for outpatient treatment
[2018-05-08] MEDS: FLUDROCORTISONE ACETATE 0.1 MG TABLET (FP) PO SCH (10:18)
[2018-05-08] MEDS: PARoxetine HCL 10 MG TABLET (FP) PO SCH (10:18)
[2018-05-08] MEDS: QUEtiapine FUMARATE 50 MG TABLET PO PRN (10:19)
[2018-05-08] MEDS: PRENATAL VITAMINS W/ FOLIC ACID TABLET (FP) PO SCH (10:19)
[2018-05-08] MEDS: hydrOXYzine PAMOATE 50 MG CAPSULE (FP) PO PRN (10:19)
== END 2018-05-08 14:24 | disposition home or self-care (01) | DRG 772 ==
LOC: YASAS 14:27 → Y5N 14:28
PROVIDERS: ADMIT Psychiatry & Neurology Psychiatry; ATTEND Psychiatry & Neurology Psychiatry
PROC: HZ42ZZZ Group Counseling for Substance Abuse Treatment, Cognitive-Behavioral (ICD-10-PCS; principal; 2018-05-01)
DX: F13.20 Sedative, hypnotic or anxiolytic dependence, uncomplicated (principal); F90.9 Attention-deficit hyperactivity disorder, unspecified type; F41.9 Anxiety disorder, unspecified